=== PATIENT | female | born 1995 | race Two or more races ===

== ENCOUNTER 2016-08-30 07:12 | Emergency (ER) | payer SELFPAY ==
[2016-08-30 07:17] VITALS: BP 137/69
--- NOTE | 2016-08-30 07:52 | PHYS DOC ---
Past Medical History Past Medical History: No Pertinent History Past Surgical History: Alcohol Use: None Drug Use: None Adult General Chief Complaint Chief Complaint: VAGINAL BLEEDING HPI HPI Patient is a 21 year old female 2 para 1 who presents today with vaginal bleeding and . Patient was seen in the ED last night and was discharged around midnight with demise at 7 weeks. Patient states she thought all demise pregnancies are aborted at the hospital. Patient states she has used two feminine pad since last night when she was discharged. Patient denies any extra vaginal bleeding or abdominal pain. Review of Systems Review of Systems Constitutional: Denies fever or chills [] Eyes: Denies change in visual acuity, redness, or eye pain [] HENT: Denies nasal congestion or sore throat [] Respiratory: Denies cough or shortness of breath [] Cardiovascular: No additional information not addressed in HPI [] GI: Vaginal bleeding and abdominal pain in . : Denies dysuria or hematuria [] Musculoskeletal: Denies back pain or joint pain [] Integument: Denies rash or skin lesions [] Neurologic: Denies headache, focal weakness or sensory changes [] Endocrine: Denies polyuria or polydipsia [] Allergies Allergies Allergies Coded Allergies Type Severity Reaction Last Updated Verified No Known Drug Allergies 08/29/16 No Physical Exam Physical Exam Constitutional: Well developed, well nourished, no acute distress, non-toxic appearance. [] HENT: Normocephalic, atraumatic, bilateral external ears normal, oropharynx moist, no oral exudates, nose normal. [] Eyes: PERRLA, EOMI, conjunctiva normal, no discharge. [] Neck: Normal range of motion, no tenderness, supple, no stridor. [] Cardiovascular:Heart rate regular rhythm, no murmur [] Lungs & Thorax: Bilateral breath sounds clear to auscultation [] Abdomen: Bowel sounds normal, soft, no tenderness, no masses, no pulsatile masses. [] Skin: Warm, dry, no erythema, no rash. [] Back: No tenderness, no CVA tenderness. [] Extremities: No tenderness, no cyanosis, no clubbing, ROM intact, no edema. [] Neurologic: Alert and oriented X 3, normal motor function, normal sensory function, no focal deficits noted. [] Psychologic: Affect normal, judgement normal, mood normal. [] Current Patient Data Vital Signs Vital Signs Date Time Temp Pulse Resp B/P Pulse Ox O2 Delivery O2 Flow Rate FiO2 08/30/16 07:17 98.3 98 14 137/69 97 Room Air 98.3 EKG EKG [] Radiology/Procedures Radiology/Procedures [] Course & Med Decision Making Course & Med Decision Making Pertinent Labs and Imaging studies reviewed. (See chart for details) This is a 21-year-old female patient who was diagnosed with demise at 7 weeks yesterday. She presents today worried we were not able to perform an yesterday. Patient denies any extra bleeding or abdominal pain. She states she did not know what she was supposed to do at home. I talked to patient and mother at length. I explained to her what happens after demise at 7 weeks. One of the things I told patient she will probably bleed for the next 7 days. Informed patient if she starts soaking more than one feminine pad an hour or has severe abdominal pain to return to the ED. Provided an OB/ [facility] [facility] for follow-up. She is in no distress today. She was discharged in stable condition. Dragon Disclaimer Dragon Disclaimer This electronic medical record was generated, in whole or in part, using a voice recognition dictation system. Departure Departure Impression: Primary Impression: Miscarriage Disposition: 01 HOME, SELF-CARE Condition: STABLE Referrals: NO PCP (PCP) SEGUNDO BENJAMIN MD see your OBGYN or the provided OB in 2 days Patient Instructions: Miscarriage, [id number] Additional Instructions: You are going through a miscarriage. You will notice you are bleeding and have some abdominal cramping. This is part of the process. The things to worry about is if you start soaking more than one pad an hour or have severe abdominal pain you need to return to the Ed. The bleeding you have might go for one week. Follow up with your OBGYN or the provided doctor in 2 days. BRADY CHRISTIANSON APRN Aug 30, 2016 07:52
== END 2016-08-30 08:08 | disposition home or self-care (01) ==
LOC: ER 07:12
DX: O03.9 Complete or unspecified spontaneous abortion without complication (principal)
CPT/HCPCS: 99281